=== PATIENT | female | born 1955 | race Caucasian/White ===

== ENCOUNTER 2017-03-31 21:28 | Emergency (ER) | payer SELFPAY ==
[~2017-03-31] VITALS: Ht 160 cm; Wt 71.0 kg
[2017-03-31 21:44] VITALS: Ht 160 cm; Wt 71.0 kg
[2017-03-31] MEDS ORDERED: ONDANSETRON (ODT) 4 MG TAB ODT STA (23:06)
[2017-03-31 23:25] LABS: URINE BLOOD (Dip) POC 1+ (NEGATIVE)
--- NOTE | 2017-04-01 00:02 | ERD ---
ER Documentation Chief Complaint Date/Time DATE: 03/31/17 TIME: 23:55 Chief Complaint c/o vomiting since yesterday (not vomiting now)denies nausea/abd pain HPI This 61-year-old female presents to emergency department for nausea and vomiting , diarrhea symptoms started yesterday, patient reports that it was worse yesterday and symptoms have improved today reports vomiting 2 times today. 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 Patient has tried [place], baking soda, and soda water with little relief of symptoms. ROS All systems reviewed and are negative except as per history of present illness. PMhx/Soc History of Surgery: No Anesthesia Reaction: No Hx Neurological Disorder: No Hx Respiratory Disorders: No Hx Cardiac Disorders: No Hx Psychiatric Problems: No Hx Miscellaneous Medical Probl: Yes (DM) Hx Alcohol Use: No Hx Substance Use: No Hx Tobacco Use: No Smoking Status: Never smoker Physical Exam Vitals Vital Signs Date Time Temp Pulse Resp B/P Pulse Ox O2 Delivery O2 Flow Rate FiO2 03/31/17 21:44 99.4 109 20 109/67 97 Vitals stable, triage notes reviewed Physical Exam Const: [] Head: Atraumatic Eyes: Normal Conjunctiva ENT: Normal External Ears, Nose and Mouth. Neck: Full range of motion..~ No meningismus. Resp: Clear to auscultation bilaterally Cardio: Regular rate and rhythm, no murmurs Abd: Soft, non tender, non distended. Normal bowel sounds Skin: No petechiae or rashes Back: No midline or flank tenderness Ext: No cyanosis, or edema Neur: Awake and alert Psych: Normal Mood and Affect Results 24 hrs Laboratory Tests Test 03/31/17 23:30 Bedside Urine pH (LAB) 5.5 Bedside Urine Protein (LAB) 2+ Bedside Urine Glucose (UA) 0.50% Bedside Urine Ketones (LAB) Trace Bedside Urine Blood 1+ Bedside Urine Nitrite (LAB) Negative Bedside Urine Leukocyte Esterase (L Trace Current Medications Medications (Trade) Dose Ordered Sig/Alex Route PRN Reason Start Time Stop Time Status Last Admin Dose Admin Ondansetron HCl (Zofran Odt) 4 mg ONCE STAT ODT 03/31/17 23:06 03/31/17 23:09 DC 03/31/17 23:14 Urinalysis suggestive of infection, trace leukocytes with microscopic hematuria. Procedures/MDM This 61-year-old female presents to emergency department for evaluation of nausea vomiting and diarrhea with abdominal pain. Patient reports symptoms started yesterday, has improved today but continues reports vomiting 2. Patient has no localized abdominal pain, epigastric or periumbilical pain, low suspicion for appendicitis, pancreatitis, pyelonephritis, renal calculi, peptic ulcer disease, cholecystitis. With Zofran and a p.o. challenge. Patient is able to tolerate 100 mL of water prior to discharge. Patient will be discharged home with Zofran, instructed clear liquid diet advanced as tolerated , increase fluids, increase rest. Patient urinalysis is abnormal and patient will be discharged on Cipro 250 mg 1 tab p.o. twice daily 7 days I feel the patient is stable for discharge at this time outpatient management by primary care physician. I have discussed results, examination findings, the treatment plan with the patient and family present prior to discharge. Indications for emergent reevaluation, side effects of medication were also discussed. All questions were answered. Patient verbalizes understanding and agrees with plan of care. Departure Diagnosis: Primary Impression: Nausea, vomiting, and diarrhea Additional Impression: UTI (urinary tract infection) Urinary tract infection type: site unspecified Hematuria presence: with hematuria Qualified Code: N39.0 - Urinary tract infection with hematuria, site unspecified Condition: Good Patient Instructions: Food Poisoning (Child, 2-5Yr), Understanding Urinary Tract Infections (UTIs) [facility] Additional Instructions: Thank you for for coming to [facility] for your care today. Please ask your nurse or provider if you have questions about your care today and do not leave until all your questions have been answered. Please use any medications given as directed and follow-up with your doctor (or the doctor you were referred to) in the next 2-3 days. If you do not have a primary care doctor you may follow up at the [facility] [place] [facility] (listed below). You may also use motrin and tylenol as needed for fever and/or pain unless instructed otherwise by your provider or nurse. Indications for more urgent follow-up have been discussed, but you may return to the Emergency Department at ANY time for any worrisome or worsening symptoms. If you have abdominal pain, please know that no test or exam you received is perfect and you should follow up within 8 hours for continued pain. If you had any imaging studies today, such as an X-Ray or CT Scan, these studies will be reviewed later by a radiologist. You will be called if there are important findings that were not identified today, so make sure the contact information you provided at registration is correct. If you received any narcotic pain control medicine today, such as Vicodin, Morphine or Dilaudid, your coordination and judgment may be affected for a number of hours. Please do not drive or operate heavy machinery, and you may want someone to assist you at home. If you were given a prescription for narcotic medication, be aware that it is very addictive- use sparingly and only if necessary. CAROLINA VALDOVINOS Apr 01, 2017 00:02
[2017-04-01] MEDS ORDERED: CIPR500T4 PO (00:03)
[2017-04-01] MEDS ORDERED: ONDA4TAB14 PO (00:04)
[2017-04-01 00:24] VITALS: BP 105/64; PULSE 104; RESP 20
[2017-04-02 16:09] LABS: URINE BLOOD (Dip) POC 1+ (NEGATIVE)
== END 2017-04-01 00:25 | disposition home or self-care (01) ==
LOC: FTE 21:28
DX: R11.2 Nausea with vomiting, unspecified (principal); R19.7 Diarrhea, unspecified; N39.0 Urinary tract infection, site not specified; E11.9 Type 2 diabetes mellitus without complications
CPT/HCPCS: 81003; 99284